=== PATIENT | male | born 1940 | race Asian ===

== ENCOUNTER → 2016-05-06 | Outpatient (CLI) | payer OTHER ==
--- NOTE | 2016-05-06 11:43 | US ---
Bilateral Duplex Carotid Sonography Clinical Indications: 75-year-old male with medically-controlled hypertension. Rule out hemodynamical ly significant stenosis. Technique: The cervical portions of the carotid and vertebral arteries were imaged and interrogated by color and pulsed Doppler. Spectral analysis was performed. Cine clips are stored on PACS. COMPARISON STUDY: Carotid Doppler sonography, dated 11/18/2012. Findings: Right Carotid Artery: The common carotid artery, bifurcation, and origin of the internal and external carotid artery are well-imaged. Doppler velocity estimates and color Doppler spectra are normal, wi th no sonographic evidence of a flow-limiting stenosis. There is some minimal echogenic atherosclerot ic calcific plaque along the posterior margin of the carotid bulb. The peak systolic velocity in the right internal carotid artery is 58 cm/s, with a peak diastolic velocity of 20 cm/s. The ICA to CCA s ystolic and diastolic ratios are normal. Left Carotid Artery: The common carotid artery, bifurcation, and origin of the internal and external carotid artery are well imaged. Doppler velocity estimates and color Doppler spectra are normal. Th ere is no sonographic evidence of a flow-limiting stenosis. There is some minimal echogenic atheroscl erotic plaque involving the carotid bulb and the proximal internal carotid artery. The peak systolic velocity in the internal carotid artery is 53 cm/s, with a peak diastolic velocity of 20 cm/s. The IC A to CCA systolic and diastolic ratios are normal. Vertebral Arteries: Antegrade flow is shown by pulsed Doppler of each vertebral artery. The peak sys tolic velocity in the right vertebral artery is 34 cm/s, and in the left vertebral artery is 36 cm/s. Impression: 1. Mild atherosclerotic plaque, with no hemodynamically significant stenosis in either internal carot id artery, and no substantial change from November 2012. 2. Patent, antegrade vertebral artery flow. Measurement of carotid stenosis is based on velocity parameters that correlate the residual internal carotid diameter with [place] Symptomatic Carotid Endarterectomy Trial (NASCET) based stenosis levels.
== END ==
LOC: BMCIMAGING 10:50
PROVIDERS: ATTEND Internal Medicine
DX: I10 Essential (primary) hypertension (principal); I70.8 Atherosclerosis of other arteries